=== PATIENT | male | born 1995 | race African-American/Black ===

== ENCOUNTER 2024-05-03 23:45 | Emergency (ER) | payer OTHER, SELFPAY ==
[2024-05-04 00:04] VITALS: BP 126/85; PULSE 76; RESP 18; TEMP 36.2; O2SAT 100
--- NOTE | 2024-05-04 01:58 | ED_ITS ---
HPI - General Adult General Chief complaint: Unspecified Stated complaint: quickest way to get antidepression medications Time Seen by Provider: 05/04/24 01:57 Source: patient Mode of arrival: ambulatory Limitations: no limitations History of Present Illness HPI narrative: This is a 29-year-old male that presents to the emergency department for medication refill. Reports he recently ran out of his Effexor. He just moved to the area and does not currently have a primary care doctor. Related Data Allergies Allergy/AdvReac Type Severity Reaction Status Date / Time No Known Allergies Allergy Verified 05/03/24 23:46 Review of Systems Review of Systems: CONSTITUTIONAL: Denies fever PSYCHIATRIC: Reports depression. All systems reviewed & are unremarkable except as noted in HPI and below PMFSH Past Medical History Medical History (Updated 05/04/24 @ 02:28 by Eboni Soni PA-C) History of depression Social History Social History (Updated 05/04/24 @ 02:28 by Eboni Soni PA-C) Substance use: never Exam Narrative: GENERAL: Well-appearing, well-nourished, and in no acute distress. HEAD: Normocephalic, atraumatic. EYES: EOMI. EXTREMITIES: Normal range of motion. No edema. SKIN: Warm, dry, no rash. NEURO: No focal deficits. Alert and oriented x3. PSYCH: Normal mood and affect Course Vital Signs Vital signs: Vital Signs Temperature 97.1 F L 05/04/24 00:04 Pulse Rate 76 05/04/24 00:04 Respiratory Rate 18 05/04/24 00:04 Blood Pressure 126/85 05/04/24 00:04 Pulse Oximetry 100 05/04/24 00:04 Oxygen Delivery Room Air 05/04/24 00:04 Temperature 97.1 F L 05/04/24 00:04 Pulse Rate 76 05/04/24 00:04 Respiratory Rate 18 05/04/24 00:04 Blood Pressure 126/85 05/04/24 00:04 Pulse Oximetry 100 05/04/24 00:04 Oxygen Delivery Room Air 05/04/24 00:04 Medical Decision Making MDM Narrative Medical decision making narrative: Patient presents to the emergency department for medication refill. He has no other concerns. Will be given a month supply of his medication and a primary provider for follow-up Vital Signs Vital Signs: Vital Signs Temperature 97.1 F L 05/04/24 00:04 Pulse Rate 76 05/04/24 00:04 Respiratory Rate 18 05/04/24 00:04 Blood Pressure 126/85 05/04/24 00:04 Pulse Oximetry 100 05/04/24 00:04 Oxygen Delivery Room Air 05/04/24 00:04 Temperature 97.1 F L 05/04/24 00:04 Pulse Rate 76 05/04/24 00:04 Respiratory Rate 18 05/04/24 00:04 Blood Pressure 126/85 05/04/24 00:04 Pulse Oximetry 100 05/04/24 00:04 Oxygen Delivery Room Air 05/04/24 00:04 Critical Care Time Critical Care Time Critical Care Time: No Discharge Plan Discharge Clinical Impression: Medication refill Patient Disposition: Home, Self-Care Condition: Stable Instructions: Medicine Refill (ED) Additional Instructions: Return to the emergency department if you experience fever, chest pain, shortness of breath, abdominal pain with nausea and vomiting, weakness, numbness, or any other symptoms that are concerning to you. Follow up with primary care doctor Prescriptions: New venlafaxine [Effexor XR] 37.5 mg capsule,extended release 24hr 187.5 mg PO DAILY 30 Days Qty: 150 0RF Follow-up/Referrals: Logan Wilcox MD [Physician] - PHYSICIAN,[employer] [Primary Care Provider] -
== END 2024-05-04 02:25 | disposition home or self-care (01) ==
LOC: ANHED 05-04 02:24
PROVIDERS: Emergency Provider Physician Assistant
DX: F32.A Depression, unspecified (principal); Z76.0 Encounter for issue of repeat prescription
CPT/HCPCS: 99281

== ENCOUNTER 2024-05-08 23:41 | Emergency (ER) | payer OTHER, SELFPAY ==
--- NOTE | ~2024-05-08 | XR_ITS ---
Right Hand Technique: PA, oblique, and lateral views were obtained. Clinical History: Laceration Findings: No acute fracture or dislocation is seen. Osseous alignment is anatomic. Joint spaces are p reserved. Questionable areas of soft tissue gas, poorly delineated, possibly due to posttraumatic lucie nge.. Impression: No radiopaque foreign body. No fracture or dislocation. Questionable areas of soft tissue gas, poorly delineated. This could reflect posttraumatic change. Reviewed, dictated and finalized at location [facility] Impression: No radiopaque foreign body. No fracture or dislocation. Questionable areas of soft tissue gas, poorly delineated. This could reflect po sttraumatic change.
[2024-05-08 23:50] VITALS: BP 139/86; PULSE 102; RESP 15; TEMP 36.3; O2SAT 100
--- NOTE | 2024-05-09 01:56 | PC.NURSE ---
RN cleansed patients wounds to the left and right hand. Feet cleaned, just dried blood.
[2024-05-09] MEDS: TETANUS,DIPHTHERIA,AC PERTUSSIS ADULT (0.5 ML) BOOSTRIX IM (02:30)
--- NOTE | 2024-05-09 03:19 | ED_ITS ---
HPI - General Adult General Chief complaint: Wound/Laceration Stated complaint: hand laceration Time Seen by Provider: 05/09/24 01:47 History of Present Illness HPI narrative: This is a 29-year-old presenting for a limb laceration. Patient cut his hand on a broken wine bottle. Unknown last tetanus. No other injuries. No functional deficits. Related Data Allergies Allergy/AdvReac Type Severity Reaction Status Date / Time No Known Allergies Allergy Verified 05/08/24 23:55 [facility] Past Medical History Medical History History of depression Social History Social History Substance use: never Exam Narrative: APPEARANCE: No apparent distress. Head: atraumatic. EYES: EOMI, NOSE: Atraumatic NECK: Trachea midline RESPIRATORY: No increased rate of breathing CARDIOVASCULAR: RRR, ABDOMINAL: Non-distended MUSCULOSKELETAl: No obvious deformities NEURO: Alert. Moving 4/4 extremities SKIN:: 1 x 1 cm L-shaped laceration to the thenar eminence of the right hand, no foreign bodies noted PSYCHIATRIC: Normal affect Course Vital Signs Vital signs: Vital Signs Temperature 97.3 F L 05/08/24 23:50 Pulse Rate 102 H 05/08/24 23:50 Respiratory Rate 15 05/08/24 23:50 Blood Pressure 139/86 05/08/24 23:50 Pulse Oximetry 100 05/08/24 23:50 Oxygen Delivery Room Air 05/08/24 23:50 Temperature 97.3 F L 05/08/24 23:50 Pulse Rate 102 H 05/08/24 23:50 Respiratory Rate 15 05/08/24 23:50 Blood Pressure 139/86 05/08/24 23:50 Pulse Oximetry 100 05/08/24 23:50 Oxygen Delivery Room Air 05/08/24 23:50 Procedures Laceration Laceration 1: Date: 05/09/24 Side (If applicable): right Size (cm): 2 Description: linear (L shaped) Amount of anesthesia used (mL): 5 Pre-repair: wound explored, irrigated and irrigated extensively ====== Skin Level ====== Skin layer closed with: prolene Size (cm): 4-0 Number of sutures: 4 Technique: simple, interrupted ====== Subcutaneous Layer ====== ====== Muscle Layer ====== ====== Tendon Layer ====== Medical Decision Making MDM Narrative Medical decision making narrative: -Course: 29-year-old presenting with a laceration to his hand. Repaired with sutures. No foreign bodies noted. Suture removal in 14 days. Patient discharged on Keflex and return precautions for infection. Vital Signs Vital Signs: Vital Signs Temperature 97.3 F L 05/08/24 23:50 Pulse Rate 102 H 05/08/24 23:50 Respiratory Rate 15 05/08/24 23:50 Blood Pressure 139/86 05/08/24 23:50 Pulse Oximetry 100 05/08/24 23:50 Oxygen Delivery Room Air 05/08/24 23:50 Temperature 97.3 F L 05/08/24 23:50 Pulse Rate 102 H 05/08/24 23:50 Respiratory Rate 15 05/08/24 23:50 Blood Pressure 139/86 05/08/24 23:50 Pulse Oximetry 100 05/08/24 23:50 Oxygen Delivery Room Air 05/08/24 23:50 Discharge Plan Discharge Clinical Impression: Laceration Patient Disposition: Home, Self-Care Condition: Stable Instructions: Antibiotic Form, Care For Your Stitches (ED) Additional Instructions: Your sutures need to be removed in 14 days. Please complete Keflex course. Please take Motrin Tylenol for pain. Return to ED if he develops signs of infection like increased redness pain swelling or fevers Prescriptions: New ibuprofen 800 mg tablet 800 mg PO TID PRN (Reason: pain) 7 Days Qty: 21 0RF acetaminophen 500 mg tablet 1,000 mg PO TID PRN (Reason: tate) 7 Days Qty: 42 0RF cephalexin 500 mg capsule 500 mg PO Q12H Qty: 14 0RF No Action venlafaxine [Effexor XR] 37.5 mg capsule,extended release 24hr 187.5 mg PO DAILY 30 Days Qty: 150 0RF Follow-up/Referrals: PHYSICIAN,CERTIFIED [employer] EXECUTIVE [Primary Care Provider] -
== END 2024-05-09 03:29 | disposition home or self-care (01) ==
PROVIDERS: Emergency Provider Emergency Medicine
DX: S61.411A Laceration without foreign body of right hand, initial encounter (principal); W25.XXXA Contact with sharp glass, initial encounter; Z23 Encounter for immunization
CPT/HCPCS: 12001; 73130; 90471; 90715; 99283; J2004